=== PATIENT | female | born 1930 ===

== ENCOUNTER 2020-01-11 06:11 | Day surgery (SDC) | payer OTHER ==
[~2020-01-11] VITALS: Ht 152.4 cm; Wt 56.2 kg
[~2020-01-11 06:11] MED LIST: CRESTOR10 MG PO; HYDRALAZINE HCL10 MG PO; LANTUS SUBCUTANEO; NORVASC5 MG PO; TRADJENTA5 MG PO; ZESTRIL2.5 MG PO; [UNRECOGNIZED DRUG - OTHER] PO
== END 2020-01-12 08:00 | disposition home or self-care (01) ==
LOC: SURH 06:11 → CIR.AMB 06:11 → RECOVERY 06:11 → O/R 06:11 → RECOVERY 07:00 → EDSTATUS 10:15 → RECOVERY 10:15 → EDBD 10:15 → SURH 16:25 → O/R 16:25 → SURH 19:39 → CIR.AMB 01-12 08:00 → SURH 01-12 12:16
PROVIDERS: ATTEND Surgery
DX: K62.3 Rectal prolapse (principal); R15.9 Full incontinence of feces; N81.2 Incomplete uterovaginal prolapse